=== PATIENT | male | born 1960 | race Caucasian/White ===

== ENCOUNTER → 2021-11-14 | Emergency (ER) | payer MEDICARE ==
[~2021-11-14] VITALS: Ht 177.8 cm; Wt 79.5 kg
[2021-11-14 04:00] VITALS: BP 168/110
[2021-11-14 04:15] VITALS: BP 150/96
[2021-11-14 04:30] VITALS: BP 141/87
[2021-11-14 04:45] VITALS: BP 138/85
== END | disposition home or self-care (01) ==
LOC: ED 03:42
DX: R68.83 Chills (without fever) (principal); X37.0XXA Hurricane, initial encounter; X38.XXXA Flood, initial encounter